=== PATIENT | male | born 1970 | race Caucasian/White ===

== ENCOUNTER 2022-05-24 22:15 | Emergency (ER) | payer MEDICAID ==
[~2022-05-24] VITALS: Ht 167.6 cm; Wt 77.0 kg
[2022-05-25 00:31] LABS: CLARITY,URINE SLIGHTLY CLOUDY (Clear); COLOR,URINE YELLOW (Yellow); GLUCOSE, URINE NEGATIVE (Neg); KETONES,URINE NEGATIVE (Neg); LEUKOCYTE ESTERASE ,URINE NEGATIVE (Neg); NITRITES, URINE NEGATIVE (Neg); OCCULT BLOOD,URINE NEGATIVE (Neg); PH,URINE 5.5 (4.8-8.0); PROTEIN,URINE NEGATIVE (Neg); UROBILINOGEN,URINE 0.2 E.U/dL (0.2-1.0)
[2022-05-25 00:35] LABS: UA COLLECTION TYPE VOIDED
[2022-05-25 00:38] LABS: BACTERIA,URINE 1+ /HPF (Neg); SPERM MODERATE /HPF (NEGATIVE); SQUAMOUS EPITHELIAL CELL,UR FEW /LPF (FEW)
[2022-05-25 00:40] LABS: URINE AMPHETAMINE SCREEN POSITIVE (Neg); URINE BARBITUATE SCREEN NEGATIVE (Neg); URINE BENZODIAZEPINES SCREEN NEGATIVE (Neg); URINE CANNABINOID SCREEN NEGATIVE (Neg); URINE COCAINE SCREEN NEGATIVE (Neg); URINE METHADONE SCREEN POSITIVE (Neg); URINE OPIATE SCREEN NEGATIVE (Neg); URINE PHENCYCLIDINE SCREEN NEGATIVE (Neg)
[2022-05-25 00:45] LABS: ALANINE AMINOTRANSFERASE 35 U/L (12-78); ALBUMIN 4.2 G/DL (3.4-5.0); ALKALINE PHOSPHATASE 100 IU/L (46-116); ANION GAP 2 (8-16); ASPARTATE AMINO TRANSFERASE 27 U/L (10-37); BASOPHILS % (AUTO) 0.3 % (0-1); BILIRUBIN,TOTAL 0.6 MG/DL (0.1-1.0); BLOOD UREA NITROGEN 13 MG/DL (7-18); BUN/CREATININE RATIO 13.8 (5.4-32.0); CALCIUM 8.9 MG/DL (8.5-10.1); CHLORIDE 100 MMOL/L (99-107); CREATININE 0.94 MG/DL (0.60-1.10); EOSINOPHILS # (AUTO) 0.1 X10'3 (0-0.9); EOSINOPHILS % (AUTO) 0.6 % (0-6); GLUCOSE 93 MG/DL (70-104); HEMATOCRIT 40.1 % (42.0-52.0); HEMOGLOBIN 14.3 g/dl (14.0-17.9); LYMPHOCYTES # (AUTO) 2.7 X10'3 (1.1-4.8); LYMPHOCYTES % (AUTO) 25.5 % (21-51); MAGNESIUM 2.2 MG/DL (1.5-2.4); MEAN CORPUSCULAR HEMOGLOBIN 32.8 PG (27.0-31.0); MEAN CORPUSCULAR HGB CONC 35.6 g/dL (33.0-36.5); MEAN PLATELET VOLUME 8.7 FL (7.4-10.4); MONOCYTES % (AUTO) 9.4 % (2-12); NEUTROPHILS # (AUTO) 6.8 X10'3 (1.8-7.7); NEUTROPHILS % (AUTO) 64.2 % (42-75); PLATELET COUNT 214 X10'3 (140-440); POTASSIUM 3.8 MMOL/L (3.5-5.1); RED BLOOD COUNT 4.36 X10'6 (4.70-6.10); RED CELL DISTRIBUTION WIDTH 12.9 % (11.5-14.5); SODIUM 134 MMOL/L (135-145); TOTAL CARBON DIOXIDE 31.8 MMOL/L (24-32); TOTAL PROTEIN 8.3 G/DL (6.4-8.2); WHITE BLOOD COUNT 10.6 X10'3 (4.5-11.0); eGFR 84 ML/MIN
[2022-05-25 01:18] VITALS: BP 104/62
== END 2022-05-25 01:24 | disposition home or self-care (01) ==
LOC: ER 22:16
DX: R20.0 Anesthesia of skin (principal); R20.2 Paresthesia of skin; G89.29 Other chronic pain; M54.9 Dorsalgia, unspecified; F31.9 Bipolar disorder, unspecified; Z59.00 Homelessness unspecified
CPT/HCPCS: 36415; 80053; 80305; 81001; 83735; 85025; 87088; 99284

== ENCOUNTER 2023-02-16 23:42 | Emergency (ER) | payer MEDICAID ==
[~2023-02-16] VITALS: Ht 170.2 cm; Wt 82.3 kg
[~2023-02-16 23:42] MED LIST: LIDO700A32 TOP
[2023-02-16 23:58] VITALS: BP 124/72; PULSE 62; RESP 14; TEMP 99; O2SAT 98
[2023-02-17] MEDS ORDERED: SULF1TAB49 PO (02:45)
[2023-02-17] MEDS ORDERED: ondansetron 4mg rapidly disintigrating tab PO ONE (02:45)
[2023-02-17] MEDS ORDERED: sulfamethoxazole/trimethoprim DS (800/160mg) tablet PO ONE (02:45)
== END 2023-02-17 03:23 | disposition home or self-care (01) ==
LOC: ER 23:42
DX: L03.114 Cellulitis of left upper limb (principal); G89.29 Other chronic pain; F17.200 Nicotine dependence, unspecified, uncomplicated; Z59.00 Homelessness unspecified; Z79.899 Other long term (current) drug therapy
CPT/HCPCS: 73110; 99283

== ENCOUNTER 2025-05-22 10:31 | Emergency (ER) | payer MEDICAID ==
[~2025-05-22] VITALS: Ht 170.2 cm; Wt 86.0 kg
[~2025-05-22 10:31] MED LIST changes: +LIDO-52 TOP; -LIDO700A32 TOP
[2025-05-22 10:36] VITALS: TEMP 97.6
--- NOTE | 2025-05-22 12:44 | Physician Documentation ---
History of Present Illness ~ Chief Complaint: Medical Clearance Stated Complaint: MED CLEARANCE Time Seen by MD: 12:29 Primary Medical Doctor: margarita Baer 54-year-old male presents to the ED requesting medical clearance for ongoing methamphetamine use and fentanyl use. He states the last time he used was two days ago he is attempting go to [facility] Tetanus within 5 years?: No Medication Reconciliation Allergies: Coded Allergies: No Known Allergies (Unverified , 05/22/25) Scheduled Lidocaine (Lidoderm), 1 PATCH TOP DAILY Past Medical History Past Medical History: Chronic Back Pain, Bipolar Past Surgical History: other Alcohol Use: None Drug Use: none Lives In: Homeless Review of Systems All Other Systems at this time: Reviewed and Negative ROS As stated above in the HPI, otherwise all systems are reviewed and negative. Physical Exam Vital Signs: Temperature: 97.6, Source: Temporal, Heart Rate: 80, Respiratory Rate: 18, BP: 148/62, Pulse Oximetry: 98, Weight: 86.000 Physical Exam General: Alert, no apparent distress. HEENT: PERRL, EOMI, no injection, moist mucous membranes. Neck: Full range of motion. Respiratory: Lungs clear, no respiratory distress. Chest: No accessory muscle use. Cardiovascular: Regular rate and rhythm, no murmurs. Gastrointestinal: Soft, nontender, nondistended. Bowels sounds present. Extremities: Normal range of motion, no deformity. Neurologic: Oriented x4. Psychiatric: Normal mood and affect. Skin: Normal color, warm and dry. No edema, no ecchymosis. Progress Results/Orders Results/Orders Vital Signs 05/22/25 05/22/25 10:36 12:48 Temp 97.6 Pulse 80 75 Resp 18 15 B/P (MAP) 148/62 112/68 Pulse Ox 98 97 Medical Decision Making Additional information obtaine: N/A Findings And does not present under the influence of any substances currently. For these reasons I feel comfortable medically clearing him to go to rehabilitation Differential Dx:Considerations: Include: Intoxication-Alcohol, Intoxication- Other drug, Personality disorder, Substance abuse disorder, Acute delirium, Closed head injury, Cervical spine injury, Skull fracture, Fracture(s), Abrasion, Contusion, Foreign body, Hematoma, Laceration, Alcohol withdrawl syndrom, Encephalopathy, Hepatitis, Medically stable, Other Departure Disposition: 01 HOME / SELF CARE / HOMELESS Impression: Primary Impression: General medical exam Condition: Stable Discharge Instructions: Medical Screening Exam Additional Instructions: Medically cleared for [facility] Referrals: NO PRIMARY CARE PROVIDER (PCP) Education Educated: Patient Educated regarding: diagnosis Signature Scribe Signature: v Attestation: Scribed for Loc Edmondson [employer] by Loc El NP . 05/22/25 18:11 LOC EDMONDSON NP May 22, 2025 12:44
[2025-05-22 12:48] VITALS: BP 112/68; PULSE 75; RESP 15; O2SAT 97
== END 2025-05-22 12:50 | disposition home or self-care (01) ==
LOC: ER 10:31
DX: Z00.00 Encounter for general adult medical examination without abnormal findings (principal); G89.29 Other chronic pain; F31.9 Bipolar disorder, unspecified; F15.90 Other stimulant use, unspecified, uncomplicated; Z59.00 Homelessness unspecified; Z79.899 Other long term (current) drug therapy
CPT/HCPCS: 99282